=== PATIENT | male | born 1980 | race Two or more races ===

== ENCOUNTER 2021-11-25 20:13 | Emergency (ER) | payer OTHER ==
[~2021-11-25] VITALS: Ht 175.3 cm; Wt 74.8 kg
[2021-11-25 20:15] VITALS: BP 148/97
[2021-11-25] MEDS ORDERED: SULF1TAB42 PO (20:48)
[2021-11-25] MEDS ORDERED: CEPH500B PO (20:48)
[2021-11-25] MEDS ORDERED: SULFAMETHOX-TMP DS 800/160 TAB PO SCH (21:00)
[2021-11-25] MEDS ORDERED: CEFTRIAXONE 1G VIAL IM ONE (21:00)
== END 2021-11-25 21:04 | disposition home or self-care (01) ==
LOC: EDH 20:13
DX: L03.114 Cellulitis of left upper limb (principal); E78.00 Pure hypercholesterolemia, unspecified
CPT/HCPCS: 96372; 99283; J0696